=== PATIENT | male | born 2000 | race Caucasian/White ===

== ENCOUNTER 2024-12-10 15:45 | Outpatient (CLI) | payer OTHER, SELFPAY | END 2024-12-10 15:46 | disposition home or self-care (01) | LOC: NFLDREF 12-11 16:41 | PROVIDERS: PCP Family Medicine; Referring Provider Family Medicine; Visit Provider Emergency Medicine | DX: R10.9 Unspecified abdominal pain (principal); R19.8 Other specified symptoms and signs involving the digestive system and abdomen | CPT/HCPCS: 87086 ==

== ENCOUNTER 2024-12-18 08:22 | Outpatient (CLI) | payer OTHER, SELFPAY ==
--- NOTE | 2024-12-18 09:00 | CRLHL7_ITS ---
For Patients: As a result of the Century Cures Act, medical imaging exams and procedure reports are released immediately into your electronic medical record. You may view this report before your referring provider. If you have questions, please contact your health care provider. INDICATION: Abdominal pain for 12 days TECHNIQUE: Volumetric helical scanning of the abdomen and pelvis was performed with 100 cc of Isovue 370 contrast material IV. Coronal and sagittal reconstructions were obtained. COMPARISON: None FINDINGS: There is no evidence of bowel obstruction or inflammation. A normal appendix is noted. The liver is normal in size shape. A 3.2 x 3.0 x 2.4 cm mass in liver segment 6 is demonstrated and is suspected to represent an hemangioma. A suspected additional 1.0 cm hemangioma is demonstrated in segment 2. The bile ducts are within normal limits. The spleen, adrenal glands and pancreas are negative. The kidneys are unremarkable. No lymphadenopathy is evident. No free fluid is demonstrated. Prostate is negative. The lung bases are essentially clear, and heart size is normal. IMPRESSION: 1. Etiology of abdominal pain not evident. 2. 3.2 and 1.0 cm liver masses, likely hemangiomas. MRI recommended for confirmation. Please note that all CT scans at this facility use dose modulation, iterative reconstruction, and/or weight-based dosing when appropriate to reduce radiation dose to as low as reasonably achievable. Dictated by Messi Hill MD @ 12/19/2024 6:29:41 AM (Electronically Signed)
== END 2024-12-18 08:23 | disposition home or self-care (01) ==
LOC: CT 08:23
PROVIDERS: PCP Family Medicine; Visit Provider Emergency Medicine
DX: R10.9 Unspecified abdominal pain (principal); R16.0 Hepatomegaly, not elsewhere classified
CPT/HCPCS: 74177; Q9967

== ENCOUNTER 2024-12-30 07:01 | Outpatient (CLI) | payer OTHER, SELFPAY ==
--- NOTE | 2024-12-30 07:15 | CRLHL7_ITS ---
For Patients: As a result of the Century Cures Act, medical imaging exams and procedure reports are released immediately into your electronic medical record. You may view this report before your referring provider. If you have questions, please contact your health care provider. INDICATION: Hemangioma. COMPARISON: CT scan of the abdomen and pelvis dated 18 December 2024. TECHNIQUE: Abdominal MRI with T1 in- and out of phase, T2, diffusion weighted, and progressively delayed post-contrast images. Intravenous gadolinium administered. FINDINGS: No fatty infiltration of the liver. 2.4 cm lesion in segment 6 of the liver shows discontiguous peripheral puddling of contrast. 9 mm lesion in the upper portion of segment 2 of the liver has similar imaging characteristics. No other focal abnormalities identified in the visualized portions of the liver, spleen, pancreas, adrenal glands, and kidneys. No hydronephrosis. No adenopathy. Impression : 1. 2.4 cm hemangioma in segment 6 of the liver. 9 mm lesion in the upper portion of segment 2 of the liver also likely represents a hemangioma but is too small to completely characterize. Dictated by Fady Felipe MD @ 12/30/2024 12:52:25 PM (Electronically Signed)
== END 2024-12-30 07:02 | disposition home or self-care (01) ==
LOC: MRI 07:03
PROVIDERS: PCP Family Medicine; Visit Provider Emergency Medicine
DX: D18.03 Hemangioma of intra-abdominal structures (principal)
CPT/HCPCS: 74183; A9575

== ENCOUNTER 2025-01-16 06:24 | Outpatient (CLI) | payer OTHER, SELFPAY ==
--- NOTE | 2025-01-16 07:50 | P.ANES_ITS ---
Anesthesia Charges Start Date/Time Anesthesia Start Date: 01/16/25 Anesthesia Start Time: 07:11 Stop Date/Time Anesthesia Stop Date: 01/16/25 Anesthesia Stop Time: 07:47 Coding CPT Codes CPT Codes: HEIDY LWR INTST NDNV NOS - 09324 ([id number]) P1 - NORMAL HEALTHY PATIENT, QK - FORENSICS ANALYST 2-4 CNCRNT ANES PROC, QX - POTTERY KILN BUILDER SVC W/ MED DIRECTION
--- NOTE | 2025-01-16 07:50 | W.ANESCHARGE ---
Anesthesia Charges Start Date/Time Anesthesia Start Date: 01/16/25 Anesthesia Start Time: 07:11 Stop Date/Time Anesthesia Stop Date: 01/16/25 Anesthesia Stop Time: 07:47 Coding CPT Codes CPT Codes: HEIDY LWR INTST NDNY NOS - 51832 ([id number]) P1 - NORMAL HEALTHY PATIENT, QK - RN FIELD CASE MANAGER 2-4 CNCRNT ANES PROC, QX - BABY ATTENDANT SVC W/ MED DIRECTION
--- NOTE | 2025-01-16 07:59 | P.ANES_ITS ---
Anesthesia Charges Start Date/Time Anesthesia Start Date: 01/16/25 Anesthesia Start Time: 07:11 Stop Date/Time Anesthesia Stop Date: 01/16/25 Anesthesia Stop Time: 07:47 Coding CPT Codes CPT Codes: HEIDY LWR INTST NDGA NOS - 65917 ([id number]) P1 - NORMAL HEALTHY PATIENT, QK - BIAS MACHINE OPERATOR HELPER 2-4 CNCRNT ANES PROC, QX - CASHIER WRAPPER SVC W/ MED DIRECTION
--- NOTE | 2025-01-16 07:59 | W.ANESCHARGE ---
Anesthesia Charges Start Date/Time Anesthesia Start Date: 01/16/25 Anesthesia Start Time: 07:11 Stop Date/Time Anesthesia Stop Date: 01/16/25 Anesthesia Stop Time: 07:47 Coding CPT Codes CPT Codes: HEIDY LWR INTST NDOH NOS - 49666 ([id number]) P1 - NORMAL HEALTHY PATIENT, QK - BLOCK STACKER 2-4 CNCRNT ANES PROC, QX - RN MDS SVC W/ MED DIRECTION
== END 2025-01-16 06:25 | disposition home or self-care (01) ==
LOC: OP CLINIC 06:25
PROVIDERS: PCP Family Medicine; Visit Provider Surgery
DX: R10.32 Left lower quadrant pain (principal); D12.3 Benign neoplasm of transverse colon
CPT/HCPCS: 00811; 45380; 45385; 88305; J2704